=== PATIENT | female | born 1955 | race Caucasian/White ===

== ENCOUNTER 2016-07-27 17:52 | Emergency (ER) | payer SELFPAY ==
[2016-07-27 17:52] VITALS: BMI 35.4
[2016-07-27] MEDS ORDERED: Albuterol-Ipratrop 3 mg / 0.5 (3 ml) UD IH STA (18:30)
[2016-07-27] MEDS ORDERED: Albuterol-Ipratrop 3 mg / 0.5 (3 ml) UD ONE (18:59)
--- NOTE | 2016-07-27 19:38 | C.PDOC ---
Time Seen by Provider: 07/27/16 18:18 Chief Complaint (Nursing): Cough, Cold, Congestion History Per: Patient, Family Onset/Duration Of Symptoms: Days (about 1 week) Current Symptoms Are (Timing): Still Present Associated Symptoms: Sore Throat (resolved), Cough, Sputum (clear), Nasal Congestion (resolved) Severity: Moderate Additional History Per: Prior Records Past Medical History Reviewed: Historical Data, Nursing Documentation, Vital Signs Vital Signs: Last Vital Signs Temp 98.7 F 07/27/16 17:56 Pulse 99 H 07/27/16 17:56 Resp 17 07/27/16 17:56 BP 132/73 07/27/16 17:56 Pulse Ox 95 07/27/16 17:56 - Medical History PMH: Diabetes (type 2), HTN, Hyperlipidemia Surgical History: Family History: States: Unknown Family Hx - Social History Hx Tobacco Use: No Hx Alcohol Use: No Hx Substance Use: No - Immunization History Hx Tetanus Toxoid Vaccination: No Hx Influenza Vaccination: No Hx Pneumococcal Vaccination: No Review Of Systems Except As Marked, All Systems Reviewed And Found Negative. Constitutional: Negative for: Fever Cardiovascular: Negative for: Chest Pain Respiratory: Positive for: Cough. Negative for: Shortness of Breath, Hemoptysis Gastrointestinal: Positive for: Vomiting (spitting up post-tussive phlegm). Negative for: Abdominal Pain Genitourinary: Negative for: Dysuria Musculoskeletal: Negative for: Neck Pain, Back Pain, Leg Pain Skin: Negative for: Rash Neurological: Negative for: Weakness, Numbness, Seizures, Altered Mental Status Physical Exam - Physical Exam Appears: Non-toxic, No Acute Distress Skin: Normal Color, Warm, Dry, No Rash Head: Atraumatic, Normacephalic Eye(s): bilateral: Normal Inspection, PERRL, EOMI Neck: Normal ROM, Supple Cardiovascular: Rhythm Regular Respiratory: Normal Breath Sounds, No Accessory Muscle Use Gastrointestinal/Abdominal: Soft, No Tenderness Back: No CVA Tenderness Extremity: Normal ROM, No Pedal Edema, No Calf Tenderness Neurological/Psych: Oriented x3, Normal Motor, Normal Sensation ED Course And Treatment O2 Sat by Pulse Oximetry: 95 Pulse Ox Interpretation: Normal - Radiology CXR: Interpreted by Me, Viewed By Me CXR Interpretation: Yes: No Acute Disease Progress Note: Pt feels much better after Duoneb. Pt was treat by her PMD and already finished a Z-enoch. Reassessment Condition: Improved Disposition Counseled Patient/Family Regarding: Studies Performed, Diagnosis, Need For Followup, Rx Given - Disposition Referrals: Lefty Wilson MD [Staff Provider] - Disposition: HOME/ ROUTINE Disposition Time: 19:38 Condition: IMPROVED Additional Instructions: Follow up with your doctor for further evaluation and treatment. Return to the ER if you develop shortness of breath, fever, chest pain, worsening of symptoms or if you have any other concerns. Prescriptions: Albuterol HFA [Ventolin HFA 90 mcg/actuation (8 g)] 2 puff IH Q4 PRN #1 unit PRN Reason: Cough And Congestion Instructions: Cold Symptoms (ED) - Clinical Impression Clinical Impression: Cough
[2016-07-27 20:00] VITALS: BP 147/76; PULSE 93; RESP 16; TEMP 98.6; O2SAT 100
--- NOTE | 2016-07-28 08:42 | RAD ---
HISTORY: Cough COMPARISON: 01/27/2016 TECHNIQUE: Chest PA and lateral FINDINGS: LUNGS: Mild venous congestion. Patchy increased markings at the left lung base. Mild nodularity at the left lung base. PLEURA: No significant pleural effusion identified. No pneumothorax apparent. CARDIOVASCULAR: Cardiomegaly. Tortuous aorta. OSSEOUS STRUCTURES: Degenerative changes in the spine and shoulders. VISUALIZED UPPER ABDOMEN: Normal. OTHER FINDINGS: None. IMPRESSION: Mild venous congestion. Patchy increased markings at the left lung base. Mild nodularity at the left lung base.
== END 2016-07-27 20:00 | disposition home or self-care (01) ==
LOC: C.ER 17:52
DX: R05 Cough (principal)

== ENCOUNTER 2016-10-05 12:48 | Emergency (ER) | payer SELFPAY ==
[2016-10-05 12:49] VITALS: BMI 35.4
[2016-10-05 12:53] VITALS: TEMP 98.6
--- NOTE | 2016-10-05 13:23 | C.PDOC ---
History Of Present Illness 60 year old female presents to the ED with complaints of left hip pain exacerbated when walking, that radiates down her leg, for two days. She states she "I think I have arthritis", and took one dose of Tylenol with no relief. Patient denies any injury, fall, numbness, weakness, or urinary symptoms. Time Seen by Provider: 10/05/16 13:02 Chief Complaint (Nursing): Hip Pain History Per: Patient History/Exam Limitations: no limitations Onset/Duration Of Symptoms: Days (2 days ) Current Symptoms Are (Timing): Still Present Recent travel outside of the [place]: No Past Medical History Reviewed: Historical Data, Nursing Documentation, Vital Signs Vital Signs: Last Vital Signs Temp 98.6 F 10/05/16 12:51 Pulse 84 10/05/16 14:52 Resp 16 10/05/16 14:52 BP 129/85 10/05/16 14:52 Pulse Ox 98 10/05/16 14:52 - Medical History PMH: Diabetes (type 2), HTN, Hyperlipidemia Surgical History: Family History: States: Unknown Family Hx - Social History Hx Tobacco Use: No Hx Alcohol Use: No Hx Substance Use: No - Immunization History Hx Tetanus Toxoid Vaccination: No Hx Influenza Vaccination: No Hx Pneumococcal Vaccination: No Review Of Systems Constitutional: Negative for: Fever, Chills, Sweats Cardiovascular: Negative for: Chest Pain, Palpitations Respiratory: Negative for: Cough, Shortness of Breath Gastrointestinal: Negative for: Nausea, Vomiting, Abdominal Pain, Diarrhea Genitourinary: Negative for: Dysuria, Hematuria Musculoskeletal: Positive for: Leg Pain, Other (left hip pain) Skin: Negative for: Rash Neurological: Negative for: Headache, Dizziness Physical Exam - Physical Exam Appears: Non-toxic, No Acute Distress Skin: Warm, Dry Head: Atraumatic, Normacephalic Eye(s): bilateral: Normal Inspection, EOMI Neck: Normal ROM, No Midline Cervical Tenderness, No Paracervical Tenderness, No Step Off Deformity, Supple Chest: Symmetrical, No Deformity Cardiovascular: Rhythm Regular Respiratory: Normal Breath Sounds, No Rales, No Rhonchi, No Wheezing Back: Normal Inspection, No Vertebral Tenderness, No Paraspinal Tenderness Extremity: Normal ROM, Tenderness (no hip tenderness, mild tenderness to lateral left thigh), No Pedal Edema, No Calf Tenderness, Capillary Refill (good capillary refill ), No Deformity, No Swelling, Other (no erythema, swelling, mass or rash to hip or extremities ) Neurological/Psych: Oriented x3, Normal Speech Gait: Steady ED Course And Treatment O2 Sat by Pulse Oximetry: 95 (room air ) Medical Decision Making Medical Decision Making: Patient was given Valium and Toradol for pain. Upon reevaluation, patient reports pain has mostly improved. Patient is ambulatory without signs of discomfort. Recommend analgesics at home and Rx was given. Patient to follow up with PCP or clinic. Disposition Counseled Patient/Family Regarding: Diagnosis, Need For Followup, Rx Given - Disposition Referrals: Lefty Wilson MD [Staff Provider] - Disposition: HOME/ ROUTINE Disposition Time: 14:03 Condition: IMPROVED Additional Instructions: Vaya a villavicencio mdico o la clnica en 2-5 sr sin falta, para mas evaluacin. [place] los medicamentos casper indicado. Volver a la shaunna de emergencia en cualquier momento si los sntomas persisten o empeoran. Prescriptions: Cyclobenzaprine [Cyclobenzaprine HCl] 10 mg PO TID #30 tab Ibuprofen [Motrin] 600 mg PO Q8 #30 tab Instructions: Sciatica (ED) Print Language: TURKMEN - POA Present On Arrival: None - Clinical Impression Clinical Impression: Sciatica - Scribe Statement The provider has reviewed the documentation as recorded by the Scribe Rachell Lincoln All medical record entries made by the Scribe were at my direction and personally dictated by me. I have reviewed the chart and agree that the record accurately reflects my personal performance of the history, physical exam, medical decision making, and the department course for this patient. I have also personally directed, reviewed, and agree with the discharge instructions and disposition.
[2016-10-05 14:52] VITALS: BP 129/85; PULSE 84; RESP 16
[2016-10-05 16:39] VITALS: O2SAT 95
== END 2016-10-05 14:52 | disposition home or self-care (01) ==
LOC: C.ER 12:48
DX: M54.32 Sciatica, left side (principal)
CPT/HCPCS: 96372; 99283; J1885

== ENCOUNTER 2017-12-18 11:35 | Emergency (ER) | payer OTHER ==
[2017-12-18 11:45] VITALS: BMI 34.3
[2017-12-18 11:46] VITALS: BP 134/83; PULSE 86; RESP 18; TEMP 98.5; O2SAT 96
--- NOTE | 2017-12-18 12:39 | C.PDOC ---
History Of Present Illness 62 year old female presents to the ER with a complaint of cough for the past week that worsened since last night and sore throat since this morning. Patient has been taking cough syrup with some relief and also reports she is on zithromax. Denies fever, chills, SOB, or chest pain. Time Seen by Provider: 12/18/17 11:42 Chief Complaint (Nursing): Cough, Cold, Congestion History Per: Patient History/Exam Limitations: no limitations Onset/Duration Of Symptoms: Days Current Symptoms Are (Timing): Still Present Location Of Pain: Throat Sick Contacts (Context): None Associated Symptoms: Sore Throat, Cough. denies: Fever, Chills, Other (Chest pain, SOB) Ear Symptoms: Bilateral: None Recent travel outside of the [place]: No Past Medical History Reviewed: Historical Data, Nursing Documentation, Vital Signs Vital Signs: Last Vital Signs Temp 98.5 F 12/18/17 11:45 Pulse 86 12/18/17 11:45 Resp 18 12/18/17 11:45 BP 134/83 12/18/17 11:45 Pulse Ox 96 12/18/17 13:37 - Medical History PMH: Diabetes (type 2), HTN, Hyperlipidemia Surgical History: Family History: States: Unknown Family Hx - Social History Hx Tobacco Use: No Hx Alcohol Use: No Hx Substance Use: No - Immunization History Hx Tetanus Toxoid Vaccination: No Hx Influenza Vaccination: No Hx Pneumococcal Vaccination: No Review Of Systems Constitutional: Negative for: Fever, Chills ENT: Positive for: Throat Pain Cardiovascular: Negative for: Chest Pain Respiratory: Positive for: Cough. Negative for: Shortness of Breath Gastrointestinal: Negative for: Nausea, Vomiting Physical Exam - Physical Exam Appears: Non-toxic Skin: Normal Color, Warm, Dry, No Rash Head: Atraumatic, Normacephalic Eye(s): bilateral: Normal Inspection Ear(s): Bilateral: Normal Nose: Normal Oral Mucosa: Moist Throat: Normal, No Erythema, No Exudate Neck: Normal, Supple Chest: Symmetrical, No Tenderness Cardiovascular: Rhythm Regular, No Friction Rub, No Murmur Respiratory: Normal Breath Sounds, No Rales, No Rhonchi, No Wheezing Gastrointestinal/Abdominal: Soft, No Tenderness Extremity: Normal ROM (x4), No Swelling Neurological/Psych: Oriented x3, Normal Speech, Normal Motor, Normal Sensation Gait: Steady ED Course And Treatment O2 Sat by Pulse Oximetry: 96 (on RA) Pulse Ox Interpretation: Normal Medical Decision Making Medical Decision Making: CXR ordered. Claritin and prednisone administered. Patient reports improvement of symptoms, she is resting comfortably in the ER in no acute distress, vitals are stable, will discharge home with Rx and instructions to follow up with PMD. Disposition - Disposition Referrals: Lefty Wilson MD [Staff Provider] - Disposition: HOME/ ROUTINE Disposition Time: 13:34 Condition: GOOD Additional Instructions: Follow up with the medical doctor within 1-2 days, return if worsened. 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 - Scribe Statement The provider has reviewed the documentation as recorded by the Scribe Vipul Ambrosio All medical record entries made by the Scribe were at my direction and personally dictated by me. I have reviewed the chart and agree that the record accurately reflects my personal performance of the history, physical exam, medical decision making, and the department course for this patient. I have also personally directed, reviewed, and agree with the discharge instructions and disposition.
--- NOTE | 2017-12-18 13:14 | RAD ---
Date of service: 12/18/2017 HISTORY: cough, COMPARISON: Chest radiograph dated 07/27/2016. TECHNIQUE: Chest PA and lateral FINDINGS: LUNGS: No active pulmonary disease. PLEURA: No significant pleural effusion identified. No pneumothorax apparent. CARDIOVASCULAR: Atherosclerotic aortic calcifications. Cardiomediastinal silhouette stably enlarged. OSSEOUS STRUCTURES: Unchanged. VISUALIZED UPPER ABDOMEN: Normal. OTHER FINDINGS: None. IMPRESSION: No active disease.
== END 2017-12-18 13:43 | disposition home or self-care (01) ==
LOC: C.ER 11:35
DX: J06.9 Acute upper respiratory infection, unspecified (principal); R09.82 Postnasal drip

== ENCOUNTER 2018-04-29 11:09 | Emergency (ER) | payer OTHER ==
[2018-04-29 11:10] VITALS: BMI 34.3
[2018-04-29 12:11] VITALS: BP 177/92; PULSE 86; RESP 18; TEMP 98; O2SAT 98
[2018-04-29] MEDS ORDERED: Albuterol-Ipratrop 3 mg / 0.5 (3 ml) UD INH STA (12:35)
[2018-04-29] MEDS ORDERED: Albuterol-Ipratrop 3 mg / 0.5 (3 ml) UD ONE (13:02)
--- NOTE | 2018-04-29 13:33 | C.PDOC ---
History Of Present Illness 62 y/o with PMH of HTN, HLD, DM presents to ED c/o cough, congestion,sore throat, and mild frontal headache x 5 days. Cough is intermittently productive of white sputum. Has not taken any medication for symptoms. No recent travel or sick contacts. Denies fevers, chills, abdominal pain, SOB, CP, N/V/D, dizziness, rash, weakness, numbness, paresthesias, back pain, neck pain, rash, urinary symptoms or any other associated complaints. Time Seen by Provider: 04/29/18 12:10 Chief Complaint (Nursing): Cough, Cold, Congestion Past Medical History Reviewed: Historical Data, Nursing Documentation, Vital Signs Vital Signs: Last Vital Signs Temp 98.0 F 04/29/18 12:08 Pulse 86 04/29/18 12:08 Resp 18 04/29/18 12:08 BP 177/92 H 04/29/18 12:08 Pulse Ox 98 04/29/18 12:08 - Medical History PMH: Diabetes (type 2), HTN, Hyperlipidemia Surgical History: Family History: States: Unknown Family Hx - Social History Hx Tobacco Use: No Hx Alcohol Use: No Hx Substance Use: No - Immunization History Hx Tetanus Toxoid Vaccination: No Hx Influenza Vaccination: No Hx Pneumococcal Vaccination: No Review Of Systems Except As Marked, All Systems Reviewed And Found Negative. Constitutional: Negative for: Fever, Chills ENT: Positive for: Throat Pain Cardiovascular: Negative for: Chest Pain, Palpitations Respiratory: Positive for: Cough. Negative for: Shortness of Breath Gastrointestinal: Negative for: Nausea, Vomiting, Abdominal Pain Genitourinary: Negative for: Dysuria, Frequency Musculoskeletal: Negative for: Neck Pain, Back Pain Skin: Negative for: Rash Neurological: Positive for: Headache. Negative for: Weakness, Numbness, Dizziness Physical Exam - Physical Exam Appears: Well, No Acute Distress Skin: Normal Color, Warm, Dry Eye(s): bilateral: Normal Inspection, PERRL, EOMI Ear(s): Bilateral: Normal Nose: Normal Oral Mucosa: Moist Throat: Normal Neck: Normal, Normal ROM, Supple, No Other (no meningeal signs) Cardiovascular: Rhythm Regular Respiratory: Decreased Breath Sounds (bilaterally), No Accessory Muscle Use, No Rales, No Rhonchi, No Stridor, No Wheezing Gastrointestinal/Abdominal: Soft, No Tenderness Back: Normal Inspection, No CVA Tenderness, No Vertebral Tenderness, No Decreased ROM, No Paraspinal Tenderness Extremity: Normal ROM, No Tenderness, Capillary Refill (<2s) Extremity: Bilateral: Atraumatic, Normal ROM Pulses: Left Radial: Normal, Right Radial: Normal Neurological/Psych: Oriented x3, Normal Speech, Normal Motor, Normal Sensation Gait: Steady ED Course And Treatment O2 Sat by Pulse Oximetry: 98 Medical Decision Making Medical Decision Making: Initial Plan: * CXR * Rapid Flu * Rapid Strep * Duoneb * tylenol CXR shows no active disease Rapid flu and strep negative Patient reports feeling better with medications. Lung exam shows increased breath sounds with better air flow bilaterally. Translation provided by nurse Moss to ensure patient understanding Diagnostic testing results and plan of care discussed with patient. Strict instructions given regarding prescription use, importance of followup, and signs/symptoms to return to ER including SOB, chest pain, fevers, chills, or any other new/worsening symptoms. Pt verbalized understanding of discussion. Patient is A&Ox3, ambulating with steady gait, with vital signs stable for discharge. Disposition - Disposition Referrals: [facility] [Outside] Disposition: HOME/ ROUTINE Disposition Time: 13:30 Condition: IMPROVED Additional Instructions: Inhalador 2 inhalaciones cada 6 horas segn sea necesario para la tos Aneth el paquete de dosis de medrol y se prescriben antibiticos Aumentar los fluidos [place], no actividad vigorosa. Ibuprofeno / tylenol para el dolor Seguimiento con clnica o mdico primario en 2 sr. Regrese a Er con cualquier sntoma nuevo / que empeora Prescriptions: Albuterol Sulfate [Ventolin Hfa] 2 puff IH Q6H PRN #60 puff PRN Reason: Cough Azithromycin [Z-Yimi] 250 mg PO DAILY #6 tab Guaifenesin/Dextromethorphan [Diabetic Tussin] 10 ml PO Q6H PRN #1 bottle PRN Reason: Cough Methylprednisolone [Medrol Dose Pack (21 tabs)] 4 mg PO DAILY #21 mg Instructions: Acute Bronchitis, Adult (DC) Forms: Gen Discharge Inst Ugandan, [employer] (Ugandan), Work Excuse Print Language: SLOVENIAN - Clinical Impression Clinical Impression: Lower respiratory infection
--- NOTE | 2018-04-29 13:46 | RAD ---
HISTORY: productive cough COMPARISON: Chest x-ray performed 12/18/17 TECHNIQUE: Chest PA and lateral FINDINGS: LUNGS: No focal consolidation. Please note that chest x-ray has limited sensitivity for the detection of pulmonary masses. PLEURA: No significant pleural effusion identified. No definite pneumothorax . CARDIOVASCULAR: Cardiomegaly. Ectatic aorta. No significant atherosclerotic calcifications appreciated. OSSEOUS STRUCTURES: Degenerative changes. VISUALIZED UPPER ABDOMEN: Unremarkable. OTHER FINDINGS: None. IMPRESSION: Cardiomegaly. No focal consolidation.
== END 2018-04-29 14:00 | disposition home or self-care (01) ==
LOC: C.ER 11:09
DX: J22 Unspecified acute lower respiratory infection (principal)

== ENCOUNTER 2018-05-25 18:01 | Emergency (ER) | payer OTHER ==
[2018-05-25 18:15] VITALS: BMI 32.5
[2018-05-25 18:19] VITALS: PULSE 98; RESP 20
--- NOTE | 2018-05-25 19:47 | C.PDOC ---
History Of Present Illness 62 y/o female with a PMHx of DM, HTN, HLD, presents to the ED with complaints of cough and congestion for 1 week. Cough is dry and non-productive. Patient was seen here on 04/29 for same, reports she took medications as prescribed with good resolution of symptoms. Now cough has returned and patient is requesting more cough medicine. She is also complaining of left knee pain, which is worse with cold weather and walking. Pain is localized to the medial joint line. Otherwise she denies any weakness, numbness, paresthesias, SOB, chest pain, back pain, hemoptysis, calf swelling, abdominal pain, nausea, vomiting, or any other associated symptoms. Time Seen by Provider: 05/25/18 18:10 Chief Complaint (Nursing): Cough, Cold, Congestion History Per: Patient History/Exam Limitations: no limitations Onset/Duration Of Symptoms: Days Current Symptoms Are (Timing): Still Present Associated Symptoms: Cough Past Medical History Reviewed: Historical Data, Nursing Documentation, Vital Signs Vital Signs: Last Vital Signs Temp 98.8 F 05/25/18 18:15 Pulse 98 H 05/25/18 18:15 Resp 20 05/25/18 18:15 BP 145/87 05/25/18 18:15 Pulse Ox 97 05/25/18 18:15 - Medical History PMH: Diabetes (type 2), HTN, Hyperlipidemia Surgical History: Family History: States: Unknown Family Hx - Social History Hx Tobacco Use: No Hx Alcohol Use: No Hx Substance Use: No - Immunization History Hx Tetanus Toxoid Vaccination: No Hx Influenza Vaccination: No Hx Pneumococcal Vaccination: No Review Of Systems Except As Marked, All Systems Reviewed And Found Negative. Constitutional: Negative for: Fever, Chills ENT: Positive for: Nose Congestion Cardiovascular: Negative for: Chest Pain Respiratory: Positive for: Cough. Negative for: Shortness of Breath, Hemoptysis, Sputum Gastrointestinal: Negative for: Nausea, Vomiting Musculoskeletal: Positive for: Leg Pain (left knee). Negative for: Back Pain, Other (calf swelling/pain) Neurological: Negative for: Weakness, Numbness, Other (paresthesias) Physical Exam - Physical Exam Appears: Well, Non-toxic, No Acute Distress Skin: Warm, Dry Head: Atraumatic, Normacephalic Eye(s): bilateral: Normal Inspection Neck: Normal ROM Chest: Symmetrical Cardiovascular: Rhythm Regular, No Murmur Respiratory: Normal Breath Sounds, No Rales, No Rhonchi, No Wheezing, Other (Good air entry) Extremity: Normal ROM (with good flexion and extension of left knee), Tenderness (to medial joint line of left knee, with crepitus), Capillary Refill (< 2 sec), No Deformity, No Swelling Pulses: Left Dorsalis Pedis: Normal, Right Dorsalis Pedis: Normal Neurological/Psych: Oriented x3, Normal Motor, Normal Sensation ED Course And Treatment O2 Sat by Pulse Oximetry: 97 (RA) Pulse Ox Interpretation: Normal Medical Decision Making Medical Decision Making: Impression: URI, Left knee pain Plan: Left knee x-ray Chest x-ray Xrays read as negative for acute changes by me. Left knee XR shows extensive osteoarthritic changes. Imaging reviewed and discussed with patient. On reassessment patient remains afebrile, resting comfortably, able to ambulate with steady gait. Will discharge patient home with rx for cough medication and ventolin inhaler, as requested. Patient advised to follow up with PMD and/or orthopedist for persistent knee pain. Diagnostic testing results and plan of care discussed with patient. Strict instructions given regarding prescription use, importance of followup, and signs/symptoms to return to ER including chest pain, SOB, palpitations, or any other new/worsening symptoms. Pt verbalized understanding of discussion. Patient is A&Ox3, ambulating with steady gait, with vital signs stable for discharge. Disposition Counseled Patient/Family Regarding: Studies Performed, Diagnosis, Need For Followup - Disposition Referrals: [facility] [Outside] Disposition: HOME/ ROUTINE Disposition Time: 19:49 Condition: IMPROVED Additional Instructions: Tessalon perles cada 8 horas segn sea necesario para la tos Inhalador Ventolin cada 6 horas segn sea necesario para la tos Seguimiento con mdico primario laureano. 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 - Scribe Statement The provider has reviewed the documentation as recorded by the Scribe Angelique Novoa All medical record entries made by the Scribe were at my direction and personally dictated by me. I have reviewed the chart and agree that the record accurately reflects my personal performance of the history, physical exam, medical decision making, and the department course for this patient. I have also personally directed, reviewed, and agree with the discharge instructions and disposition.
[2018-05-25 20:09] VITALS: BP 148/79; TEMP 98.5
--- NOTE | 2018-05-26 08:22 | RAD ---
Date of service: 05/25/2018 HISTORY: cough r/o pneumonia COMPARISON: Chest radiographs 04/29/2018. TECHNIQUE: Chest PA and lateral FINDINGS: LUNGS: No active pulmonary disease. PLEURA: No significant pleural effusion identified. No pneumothorax apparent. CARDIOVASCULAR: No aortic atherosclerotic calcification present. Normal cardiac size. No pulmonary vascular congestion. OSSEOUS STRUCTURES: No significant abnormalities. VISUALIZED UPPER ABDOMEN: Normal. OTHER FINDINGS: None. IMPRESSION: No interval acute cardiopulmonary disease appreciated.
--- NOTE | 2018-05-26 08:25 | RAD ---
Date of service: 05/25/2018 PROCEDURE: Left Knee Radiographs. HISTORY: Pain. COMPARISON: None. FINDINGS: BONES: No acute fracture or destructive bony lesion identified. JOINTS: No subluxation or dislocation. Joint space narrowing is appreciated at the medial femorotibial and patellofemoral articulations with cortical sclerosis and osteophyte development compatible with osteoarthritis. Lesser similar changes are present at the lateral femorotibial compartment. JOINT EFFUSION: Small suprapatellar bursa effusion noted. OTHER FINDINGS: None. IMPRESSION: Advanced osteoarthritis left knee. No acute fracture or dislocation identified.
[2018-05-27 17:11] VITALS: O2SAT 97
== END 2018-05-25 20:15 | disposition home or self-care (01) ==
LOC: C.ER 18:01
DX: J06.9 Acute upper respiratory infection, unspecified (principal); M17.12 Unilateral primary osteoarthritis, left knee; E11.9 Type 2 diabetes mellitus without complications; I10 Essential (primary) hypertension; E78.5 Hyperlipidemia, unspecified

== ENCOUNTER 2018-06-07 15:25 | Outpatient (CLI) | payer OTHER | END 2018-06-07 15:26 | disposition home or self-care (01) | LOC: C.DEXAIC 15:25 | DX: M81.0 Age-related osteoporosis without current pathological fracture (principal); Z12.31 Encounter for screening mammogram for malignant neoplasm of breast ==